=== PATIENT | female | born 1990 ===

== ENCOUNTER 2018-01-16 23:41 | Observation (INO) | payer OTHER ==
[~2018-01-16] VITALS: Ht 167.6 cm; Wt 78.5 kg
--- NOTE | 2018-01-17 11:35 | PN- OBGYN ---
Surgical Brief Attending Note Brief Attending Note: Labor chin. 27yo at 39w called and came to L&D after MN c/o pelvic pain. Her discomfort seemed more from baby pressure on her groin and hip bones versus UCs, but on evaluation she was found to be kemal regularly and moderately. Based on the nurses' cervical exams, she progressed from 3 to 4cm in the first hour, but then her UCs lessened and there was no further cervical change. Her membranes remained intact. FHR tracing was Category 1 throughout. Patient was too uncomfortable to go home, so she received a dose of Morphine/Vistaril, and she slept overnight. This morning she is in much less pain, UCs are present but milder, and her cervix on my exam is 3cm/80%, VTX is - 2, membrane intact. FHR tracing category 1. Discussed options, home or IOL, I prefer she goes home for now and waits for a more active UC pattern, and patient is in agreement. Labor precautions discussed, movement reviewed. If undelivered, she'll return to the office as scheduled this coming week.
== END 2018-01-17 11:41 ==
LOC: CBCO → GNO 01-17 01:00
DX: O47.1 False labor at or after 37 completed weeks of gestation (principal); Z3A.39 39 weeks gestation of pregnancy
CPT/HCPCS: 96361; 96365; 96372; 96374; G0378; G0463; J2405

== ENCOUNTER 2018-01-30 07:50 | Inpatient (IN) | payer OTHER ==
[~2018-01-30] VITALS: Ht 167.6 cm; Wt 79.4 kg
[2018-01-30 08:49] LABS: ABSOLUTE BASOPHIL COUNT 0 /CUMM (0.0-0.2); ABSOLUTE EOSINOPHIL COUNT 0.1 /CUMM (0.0-0.7); ABSOLUTE GRANULOCYTE CT 4.6 /CUMM (1.4-6.5); ABSOLUTE LYMPH COUNT 2.2 /CUMM (1.2-3.4); ABSOLUTE MONOCYTE COUNT 0.8 /CUMM (0.10-0.60); BASOPHIL % 0.5 % (0.0-2.0); EOSINOPHIL % 0.9 % (0-5); GRANULOCYTE % 59.5 % (42.2-75.2); HEMATOCRIT 31.9 % (37-47); MEAN CORPUSCULAR HGB 26.7 PG (27.0-31.0); MEAN CORPUSCULAR HGB CONC 33.1 G/DL (33.0-37.0); MEAN CORPUSCULAR VOLUME 80.8 FL (81.0-99.0); MEAN PLATELET VOLUME 6.9 FL (7.4-10.4); PLATELET COUNT 325 /CUMM (130-400); RBC DISTRIBUTION WIDTH 15.1 % (11.5-14.5); RED BLOOD CELL CT 3.96 /CUMM (4.20-5.40); WHITE BLOOD CELL COUNT 7.7 /CUMM (4.8-10.8)
--- NOTE | 2018-01-30 09:14 | History & Physical ---
General Information and HPI MD Statement: I have seen and personally examined RODOLFO,OCTOBER and documented this H&P. The patient is a 27 year old female at [40] weeks and [6] days gestation who presented with a chief complaint of [IOL]. Source of Information: patient Exam Limitations: no limitations History of Present Illness: 27yo, , 40 6/7wks, here for IOL due to postdates. she denies ctxs, no VB or LOF, reports GFM. care started at 8+ wks, uncomplicated thus far. GBS positive Allergies/Medications Allergies: Uncoded Allergies: LILAC SOAP (Mild, RASH 10/29/11) Past History evaporator History : 2 Para: 1 Last Menstrual Period: 04/19/2017 Estimated Delivery Date: 01/24/2018 Past evaporator History: non-contributory Past Pregnancies Past Pregnancies: Date of Delivery: 10/2011 Gestational Age: 38wks Weight: 8lb8oz Type of Delivery: vaginal Complications: none Medical History Neurological: NONE EENT: NONE Cardiovascular: NONE Respiratory: NONE Gastrointestinal: NONE Hepatic: NONE Renal: NONE Musculoskeletal: NONE Psychiatric: NONE Endocrine: NONE Blood Disorders: NONE Cancer(s): NONE GRINDER TENDER/Reproductive: NONE Surgical History Pertinent Surgical History: none Past Family/Social History Psychosocial History Where do you live? Home Smoking Status: Former Smoker ETOH Use: denies use Illicit Drug Use: denies illicit drug use Review of Systems Review of Systems Constitutional: Reports: no symptoms. EENTM: Reports: no symptoms. Cardiovascular: Reports: no symptoms. Respiratory: Reports: no symptoms. GI: Reports: no symptoms. Genitourinary: Reports: see HPI. Musculoskeletal: Reports: no symptoms. Skin: Reports: no symptoms. Neurological/Psychological: Reports: no symptoms. Hematologic/Endocrine: Reports: no symptoms. Immunologic/Allergic: Reports: no symptoms. All Other Systems: Reviewed and Negative Exam & Diagnostic Data Last 24 Hrs of Vital Signs/I&O Intake & Output 01/30 1600 01/30 0800 01/30 0000 Intake Total Output Total Balance Patient 79.379 kg Weight Obstetric Exam Wgt Gained During : 16lbs Pelvimetry: tested 8lb8oz Dilation (cm): 3 Effacement (%): 60 Station: -2 Membranes: intact Fluid: unknown Fundal Height (cm): 40 Multiple Gestation? No Contractions: occasional #1 - FHR Baseline: 130 Category: 1 Estimated Weight: 3800g Presentation: vertex Patient for Induction? Yes Wheeler Score Wheeler Score Response Value Cervix Position: mid-position 1 Cervix Consistency: medium 1 Cervix Effacement: 60-70% 2 Cervix Dilation: 3-4 cm 2 Cervix Station: -2 1 Total 7 Physical Exam: VSS General: NAD Abdomen: gravid, sofdt, nontender. Ext: DCT (-) Labs Blood Type & Rh: B positive Antibody Screen: negative Hct/Hgb & Platelets #1: 12.5/36.7%,[id number] Hct/Hgb & Platelets #2: 10.9/32.6%,[id number] Rubella: immune VDRL #1: negative VDRL #2: negative HbsAg: negative HIV #1: negative HIV #2 negative 1 Hr P 3 Hr P/173/149/92 Group B Strep: positive Initial Ultrasound: IUP at 8wks Anatomy Ultrasound: nl Genetic Testing: declined Last 24 Hrs of Labs/Herbert: Laboratory Tests 01/30/18 0830: Hemoglobin A1c 5.5 01/30/18 0815: CBC w Diff NO MAN DIFF REQ, RBC 3.96 L, MCV 80.8 L, MCH 26.7 L, MCHC 33.1, RDW 15.1 H, MPV 6.9 L, Gran % 59.5, Lymphocytes % 28.8, Monocytes % 10.3 H, Eosinophils % 0.9, Basophils % 0.5, Absolute Granulocytes 4.6, Absolute Lymphocytes 2.2, Absolute Monocytes 0.8 H, Absolute Eosinophils 0.1, Absolute Basophils 0, Urine Color STRAW, Urine Clarity HAZY H, Urine pH 7.0, Ur Specific Bern <= 1.005, Urine Protein NEG, Urine Ketones NEG, Urine Nitrite NEG, Urine Bilirubin NEG, Urine Urobilinogen 0.2, Ur Leukocyte Esterase NEG, Ur Microscopic SEDIMENT EXAMINED, Urine RBC RARE, Urine WBC RARE, Ur Epithelial Cells PACKD H, Urine Bacteria MOD H, Urine Hemoglobin NEG, Urine Glucose NEG Assessment/Plan Assessment/Plan: 27yo, 40 6/7wks, IOL for postdates 1. admit pt, admission labs 2. PCN fore GBS prophylaxis 3. R/B/A of IOL d/w pt, she understand , pitocin for IOL d/w pt, she understand and agreed 4. will monitor closely As Ranked By This Provider Problem List: 1. 2. Post-dates Core Measures Venous Thromboembolism VTE Risk Factors / No Mechanical VTE Prophylaxis d/t LowRisk-No Interven Req'd No VTE Pharm Prophylaxis d/t LowRisk-No Interven Req'd Attending MD Review Statement Attending Statement Attending MD Statement: examined this patient, discussed with family, discussed w/nursing
--- NOTE | 2018-01-30 13:40 | PN- OBGYN ---
Surgical Brief Attending Note Brief Attending Note: pt c/o ctxs pain 6/10 scale, pitocin at 8 mU/min on TOCO: ctxs q 2-3 min, FHR baseline 130, moderate variability, + acels, no decels cervix 4cm/60%/-2 AROM, clear fluid will continue current management.
--- NOTE | 2018-01-30 16:30 | Labor & Delivery Summary ---
Delivery Summary Vaginal Delivery: Vaginal: vertex Episiotomy/Lacerations: Type: 1 ST DEGREE Repair: 3-0 vicryl Anesthesia: epidural Placenta: Placenta: spontanteous, normal, 3 vessel Anesthesia: epidural Baby's Weight: 9lb5oz Apgars - 1 Min: 9 Apgars - 5 Min: 9 Additional Comments: Patient fully dilated, pushed well, spontaneously delivered viable male at cephalic presentation, LESLYE position, compound hand presentation, head delivered atraumatically, followed by shoulder and rest of the body without difficulties, baby vigorous and cried, baby placed on mother's chest, nose and mouth were suctioned with suction bulb, cord clamped and cut. Placenta delivered spontaneously, intact, three-vessel cord. First-degree laceration repaired with 3-0 Vicryl using a standard technique. After delivery the placenta, Uterine atony encountered, uterus massaged to firm, Methergine 0.2 mg IM 1, continue IV Pitocin, no heavy bleeding noted. EBL 500 mL. Patient tolerated the procedure well, laps, instruments and needle counts were correct, patient in recovery room in stable condition.
[2018-01-31 09:07] LABS: ABSOLUTE BASOPHIL COUNT 0 /CUMM (0.0-0.2); ABSOLUTE EOSINOPHIL COUNT 0 /CUMM (0.0-0.7); ABSOLUTE GRANULOCYTE CT 8.5 /CUMM (1.4-6.5); ABSOLUTE LYMPH COUNT 2.1 /CUMM (1.2-3.4); BASOPHIL % 0.3 % (0.0-2.0); EOSINOPHIL % 0.2 % (0-5); GRANULOCYTE % 73.1 % (42.2-75.2); HEMATOCRIT 28.5 % (37-47); MEAN CORPUSCULAR HGB 26.8 PG (27.0-31.0); MEAN CORPUSCULAR VOLUME 81.3 FL (81.0-99.0); MEAN PLATELET VOLUME 7.3 FL (7.4-10.4); PLATELET COUNT 301 /CUMM (130-400); RBC DISTRIBUTION WIDTH 14.6 % (11.5-14.5); RED BLOOD CELL CT 3.51 /CUMM (4.20-5.40)
[2018-01-31 09:43] LABS: WHITE BLOOD CELL COUNT 11.6 /CUMM (4.8-10.8)
--- NOTE | 2018-01-31 10:06 | PN- OBGYN ---
Surgical Brief Attending Note Brief Attending Note: PPD#1 pt is resting in bed, no cpmplaints, tolerate diet, void without difficulties. ambulating well PE: VSS Cv RRR Lungs CTA B/L Abdomen; soft, nontender, uterus firm, fundus below umbilicus, lochia mild Ext: DCT (-) A/P: 27 yo, s/p , PPD#1 1. encourage ambulation and 2. pain management as needed 3. RT PP care 4. h/h 9.4/28.5, will start iron supplementation 5. pt request circumcision for the baby, R/B/A of circumcision d/w pt in detail, all questions ans wered, informed consent obtained.
[2018-02-01] MEDS ORDERED: IBUPROFEN800 M1 PO (09:07)
[2018-02-01] MEDS ORDERED: FERROUS SULFAT325 M2 PO (09:07)
--- NOTE | 2018-02-01 09:46 | PN- OBGYN ---
Surgical Brief Attending Note Brief Attending Note: PPD#2 pt is ambulating, doing well, no complaints PE: VSS CV RRR Lungs CTA B/L Abdomen: soft, nontender, uterus firm, fundus below umbilicus. lochia mild Ext: DCT (-) A/P: 27yo, s/p , PPD#2 1. encourage ambulation and . 2. iron supplement given 3. will d/c home, f/u in office in 2wks and 6 wks. discharge instructions given. she undertsand.
== END 2018-02-01 11:30 | DRG 775 ==
LOC: GNO 07:50
PROVIDERS: Obstetrics & Gynecology
PROC: 0HQ9XZZ Repair Perineum Skin, External Approach (ICD-10-PCS; principal; 2018-01-30)
PROC: 10E0XZZ Delivery of Products of Conception, External Approach (ICD-10-PCS; principal; 2018-01-30)
DX: O70.0 First degree perineal laceration during delivery (principal); Z3A.40 40 weeks gestation of pregnancy; Z37.0 Single live birth; O99.824 Streptococcus B carrier state complicating childbirth
CPT/HCPCS: GNOP; GNOS; 81001; 87086; J2210; J7120